=== PATIENT | male | born 2000 | race Asian ===

== ENCOUNTER 2024-03-31 12:15 | Outpatient (CLI) | payer BC ==
[~2024-03-31 12:15] MED LIST: Magnevist 469MG/ML 20 ML VIAL ONE
== END 2024-03-31 12:16 | disposition home or self-care (01) ==
LOC: MRI 12:15
PROVIDERS: ATTEND Internal Medicine
DX: K60.40 Rectal fistula, unspecified (principal); K62.89 Other specified diseases of anus and rectum; K76.0 Fatty (change of) liver, not elsewhere classified
CPT/HCPCS: 72197; 74183